=== PATIENT | female | born 1965 | race American Indian/Alaskan Native ===

== ENCOUNTER 2018-05-02 09:54 | Day surgery (SDC) | payer OTHER ==
[2018-04-20 13:04] VITALS: BMI 19.2
[2018-05-02 11:06] LABS: BASO # 0.01 K/mm3 (0.0-2.0); BASO % 0.2 % (0.0-3.0); EOS % 0.7 % (1.5-5.0); HEMOGLOBIN 12.1 g/dL (12.0-16.0); LYMPH # 1.4 (1.2-3.4); LYMPH % 35.7 % (22.0-35.0); MEAN CELL VOLUME 90.3 fl (80.0-105.0); MEAN CORPUSCULAR HEMOGLOBIN 28.6 pg (25.0-35.0); MEAN CORPUSCULAR HGB CONC 31.7 g/dl (31.0-37.0); MEAN PLATELET VOLUME 9.5 fl (7.0-11.0); MONO # 0.3 (0.1-0.6); MONO % 7.9 % (1.0-6.0); RBC 4.23 10^6/uL (3.5-6.1); RED CELL DISTRIBUTION WIDTH 16.7 % (11.5-14.5)
[2018-05-02 11:16] LABS: INR 1.02; PARTIAL THROMBOPLASTIN TIME 40.3 Seconds (26.9-38.3); PROTHROMBIN TIME 11.5 SECONDS (9.4-12.5)
[2018-05-02 11:44] LABS: BLOOD UREA NITROGEN 8 mg/dL (7-21); GFR NON-AFRICAN AMERICAN > 60
[2018-05-02] MEDS ORDERED: Lidocaine 1% Inj (20ml) ONE (12:11)
[2018-05-02] MEDS ORDERED: Midazolam 2 MG/2 ML VIAL ONE (12:12)
[2018-05-02] MEDS ORDERED: Midazolam 2 MG/2 ML VIAL IVP ONE (12:44)
[2018-05-02] MEDS ORDERED: Oxycodone/Acetaminophen 5/325 mg Tab PO PRN (12:52)
[2018-05-02] MEDS ORDERED: Sodium Chloride 0.45% 1,000 ML IV SCH (13:00)
[2018-05-02 14:01] VITALS: BP 140/78; PULSE 69; RESP 18; TEMP 98; O2SAT 97
--- NOTE | 2018-05-02 15:19 | CT ---
PROCEDURE: CT guided proximal right femur biopsy. HISTORY: Cervical CA. Previous right total hip replacement. Lytic lesion proximal right femur posteriorly. Evaluate for metastatic disease PHYSICIAN(S): Miguel Ángel Puentes MD. TECHNIQUE: The relative risks and indications of the procedure were explained to the patient and consent obtained. The patient was placed prone on the CT scanner and preliminary images through the proximal femur obtained. Conscious sedation and monitoring were provided throughout the procedure by a nurse. There is a subtle 3 cm lytic area in the posterior aspect of the proximal right femur.. A right posterior approach was selected and the area prepped and draped in the usual sterile fashion. 1% Xylocaine was used to anesthetize the skin and soft tissues. A 17-gauge guiding needle was advanced into the lateral segment of the left lobe of the liver. Its position was confirmed with CT. Using coaxial technique, multiple core biopsies were obtained. The postprocedure images show no evidence of significant hemorrhage. IMPRESSION: 1. CT-guided proximal right femur biopsy as described above.
== END 2018-05-02 14:30 | disposition home or self-care (01) ==
LOC: SDS 09:54
PROVIDERS: ATTEND Radiology Vascular & Interventional Radiology
DX: M89.9 Disorder of bone, unspecified (principal); C53.9 Malignant neoplasm of cervix uteri, unspecified; Z96.641 Presence of right artificial hip joint; I10 Essential (primary) hypertension
CPT/HCPCS: 20225; 36415; 77012; 80048; 85025; 85610; 85730; 88307; J2250; J2405; J3010; J7030

== ENCOUNTER 2018-05-16 08:49 | Day surgery (SDC) | payer OTHER ==
[2018-04-20 13:04] VITALS: BMI 19.2
[2018-05-16 10:29] LABS: EOS % 0.5 % (1.5-5.0); HEMOGLOBIN 11.9 g/dL (12.0-16.0); LYMPH # 1.3 (1.2-3.4); LYMPH % 33.4 % (22.0-35.0); MEAN CORPUSCULAR HEMOGLOBIN 28.3 pg (25.0-35.0); MEAN CORPUSCULAR HGB CONC 31.2 g/dl (31.0-37.0); MEAN PLATELET VOLUME 9.5 fl (7.0-11.0); MONO # 0.3 (0.1-0.6); MONO % 8.4 % (1.0-6.0); RBC 4.2 10^6/uL (3.5-6.1); RED CELL DISTRIBUTION WIDTH 16.7 % (11.5-14.5); WHITE BLOOD COUNT 3.8 10^3/uL (4.5-11.0)
[2018-05-16 11:13] LABS: INR 1.04; PROTHROMBIN TIME 11.8 SECONDS (9.4-12.5)
[2018-05-16] MEDS ORDERED: Lidocaine 1% Inj (20ml) ONE (11:41)
[2018-05-16] MEDS ORDERED: Midazolam 2 MG/2 ML VIAL ONE (11:42)
[2018-05-16] MEDS ORDERED: Midazolam 2 MG/2 ML VIAL IVP ONE (12:02)
[2018-05-16] MEDS ORDERED: Sodium Chloride 0.45% 1,000 ML IV SCH (12:30)
[2018-05-16 13:29] VITALS: BP 121/72; PULSE 73; RESP 20; TEMP 98.3; O2SAT 99
[2018-05-16 13:43] LABS: BLOOD UREA NITROGEN 11 mg/dL (7-21); CALCIUM 9.8 mg/dL (8.4-10.5); GFR NON-AFRICAN AMERICAN > 60
--- NOTE | 2018-05-16 15:17 | RAD ---
Date of service: 05/16/2018 HISTORY: rt lung bx COMPARISON: No prior. TECHNIQUE: 1 view obtained. FINDINGS: LUNGS: No active pulmonary disease. PLEURA: No significant pleural effusion identified, no pneumothorax apparent. CARDIOVASCULAR: No aortic atherosclerotic calcification present. Normal cardiac size. No pulmonary vascular congestion. OSSEOUS STRUCTURES: No significant abnormalities. VISUALIZED UPPER ABDOMEN: Normal. OTHER FINDINGS: None. IMPRESSION: No evidence of pneumothorax
--- NOTE | 2018-05-16 18:43 | CT ---
PROCEDURE: CT guided right upper lobe lung biopsy. HISTORY: 15 millimeter spiculated right upper lobe lung mass. History cervical CA. Smoker. Evaluate for metastatic disease versus lung CA. PHYSICIAN(S): Miguel Ángel Puentes MD. TECHNIQUE: The relative risks and indications of the procedure were explained to the patient and consent obtained. The patient was placed left decubitus position on the CT scanner and preliminary images through the lung apices obtained. Conscious sedation and monitoring were provided throughout the procedure by a nurse. There is a 15 mm spiculated noncalcified mass at the right apex.. A right posterior approach was selected and the area prepped and draped in the usual sterile fashion. 1% Xylocaine was used to anesthetize the skin and soft tissues. A 19 gauge guiding needle was advanced into the 15 mm right upper lobe mass.. Its position was confirmed with CT. Using coaxial technique, multiple core biopsies were obtained. The postprocedure images show no evidence of significant hemorrhage. IMPRESSION: 1. CT-guided right upper lobe lung biopsy as described above.
== END 2018-05-16 16:30 | disposition home or self-care (01) ==
LOC: MERGE 08:49 → SDS 08:49
PROVIDERS: ATTEND Radiology Vascular & Interventional Radiology
DX: C34.11 Malignant neoplasm of upper lobe, right bronchus or lung (principal); J43.9 Emphysema, unspecified; F17.200 Nicotine dependence, unspecified, uncomplicated; Z85.41 Personal history of malignant neoplasm of cervix uteri
CPT/HCPCS: 32405; 36415; 71045; 77012; 80048; 85025; 85610; 85730; 88305; 99152; 99153; J2250; J2405; J3010; J7030; J7120